=== PATIENT | female | born 1985 | race Caucasian/White ===

== ENCOUNTER 2023-06-24 12:37 | Emergency (ER) | payer OTHER, SELFPAY ==
[2023-06-24 12:46] VITALS: BP 102/66
[2023-06-24 13:18] LABS: % Basophils 0.6 % (0-2); % Immature Granulocytes 0.2 % (0-0.5); % Lymphocytes 22.2 % (20.5-51.1); Absolute Eosinophils 0.1 10^3/uL (0-0.7); Absolute Lymphocytes 1.1 10^3/uL (1.2-3.4); Absolute Monocytes 0.4 10^3/uL (0.1-0.6); Absolute Neutrophils 3.6 10^3/uL (1.4-6.5); Hemoglobin 14.8 g/dL (12.0-16.0); Mean Corp Hgb Conc. 34.4 g/dL (33.0-37.0); Mean Corpuscular Hgb 29.5 pg (27.0-31.0); Mean Corpuscular Volume 85.7 fL (81.0-99.0); Nucleated Red Blood Cells % 0 %; Red Blood Cell Count 5.02 10^6/uL (4.20-5.40); Red Cell Dist. Width 13.9 % (11.5-14.5); White Blood Cell Count 5.1 10^3/uL (4.8-10.8)
[2023-06-24 13:32] LABS: HCG, Serum Qualitative Screen Negative
[2023-06-24 13:35] LABS: ALT (SGPT) 20 U/L (0-35); AST (SGOT) 28 U/L (14-36); Albumin 4.5 g/dl (3.5-5.0); Alkaline Phosphatase 40 U/L (38-126); Blood Urea Nitrogen 13 mg/dl (7-17); Calcium 9.1 mg/dl (8.4-10.2); Carbon Dioxide 22 mmol/L (22-30); Chloride 108 mmol/L (98-107); Glucose 86 mg/dl (70-99); Potassium 4.2 mmol/L (3.5-5.1); Sodium 137 mmol/L (135-145); Total Bilirubin 0.6 mg/dl (0.2-1.3); Total Protein 7.2 g/dl (6.3-8.2); eGFR > 60.00
[2023-06-24 13:55] LABS: Mean Platelet Volume 13.5 fL (7.4-10.4); Platelet Count 97 10^3/uL (130-400)
--- NOTE | 2023-06-24 15:19 | ED.GENMED ---
History of Present Illness
<KELLEE Alvares - Last Filed: 06/24/23 17:13>
General
Chief Complaint: Headache
Source: patient
Exam Limitations: none
Time Seen by Provider: 06/24/23 15:19
Nursing documentation reviewed up to this point in time: agreed with
Travel History
Have you had any contact with someone who has COVID-19?: No
Do you have any symptoms of coronavirus? Fever > 100 degrees, chills, cough, shortness of breath, sore throat, loss of taste or smell, muscle aches, or headache?: No
History of Present Illness
History of Present Illness:
Patient is a 37-year-old female with history of multiple AVMs, with several embolizations complicated by a stroke during last embolization, craniotomy infected plate and skull(Staphylococcus). She is presently followed at [facility]. They see
neurosurgeon once a year for checkup. They have been weaning her off of Topirmate.
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 This morning she complained of a headache around 8:30 AM. She has had headaches in the past that usually resolve with ibuprofen. She was given ibuprofen at 10:30 AM and this did resolve however nurse
thought her scalp over her previous craniotomy site appears mildly swollen.
Patient is otherwise at baseline as per family. Normal gait normal behavior. Patient currently denies headaches. As documented again patient has had headaches this is not uncommon and they resolved with ibuprofen which is what occurred today.
Past History
<KELLEE Alvares - Last Filed: 06/24/23 17:13>
Past History
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
ED Past Surgical History: Other (avm repair, Lefft craniotomy)
Social History
Tobacco: Non-smoker
Alcohol: None
Drug: None
Personal: Single
Living: with family
Family History
Family History: Unable to obtain
Review of Systems
<KELLEE Alvares - Last Filed: 06/24/23 17:13>
Review of Systems
Allergies reviewed?: Yes
All Other Systems: ROS reviewed and negative except as documented in HPI and ROS
Constitutional: Reports no symptoms; Denies fever, fatigue or chills
Respiratory: Reports no symptoms
Cardiac: Reports no symptoms
ABD/GI: Denies nausea or vomiting
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
Skin: Reports no symptoms
Neurological: Reports other (no baseline mental status change. Patient had headache this morning which is since resolved)
Hematologic/Lymphatic: Reports no symptoms
Psychiatric: Reports no symptoms
Phy Exam
<KELLEE Alvares - Last Filed: 06/24/23 17:13>
General Physical Exam
General Presentation: no apparent distress
General age: appears stated age
General Skin: warm and dry
General Habitus: normal
General Mental: alert
General Hydration: appears well hydrated
ENT Exam
ENT Exam: EOMI
Eye Exam
Eye Exam: PERRL and EOMI
Eye Exam General: PERRL: bilateral and EOM intact: bilateral
Pupil Exam: Bilateral: round and reactive
Neurological Exam
Neurological Exam: alert and other (attempts to answer some questions )
Musculoskeletal Exam
Musculoskeletal Exam: other (Left scalp with obvious chronic deformity no evidence of swelling or erythema to previous surgical flap site)
Skin Exam
Skin Exam: normal color and warm/dry
Psychiatric Exam
Psychiatric Exam: normal mood/affect
Course
<KELLEE Alvares - Last Filed: 06/24/23 17:13>
Orders/Labs/Results
Orders:
Orders
06/24/23 12:56
Test Result ONCE
06/24/23 12:59
CT Head W/o Iv Contrast Urgent
Comment:
Reason For Exam: swelling
06/24/23 13:01
CBC/With Diff [Complete Blood Count/With Diff] Urgent
CMP [Comprehensive Metabolic Panel] Urgent
HCG, Serum Qualitative Screen Urgent
Abnormal Lab Results
06/24/23
13:01
Plt Count 97 L 10^3/uL
(130-400)
MPV 13.5 H fL
(7.4-10.4)
Absolute Lymphs (auto) 1.1 L 10^3/uL
(1.2-3.4)
Chloride 108 H mmol/L
(98-107)
06/24/23 13:01
06/24/23 13:01
Vital Signs
Initial and Last Documented VS:
Initial Vital Signs
Temp Pulse Resp BP Pulse Ox
98.3 F 80 16 102/66 97
06/24/23 12:46 06/24/23 12:46 06/24/23 12:46 06/24/23 12:46 06/24/23 12:46
Last Documented Vital Signs
Temp Pulse Resp BP Pulse Ox
98.3 F 78 16 107/79 98
06/24/23 12:46 06/24/23 16:49 06/24/23 16:49 06/24/23 16:49 06/24/23 16:49
Configuration Management Administrator consulted with Physician
Configuration Management Administrator consulted with physician?: Yes
Name of Physician Consulted: jolene
Massiellt;Coy Allen, DO - Last Filed: 06/24/23 16:31>
Orders/Labs/Results
Orders:
Orders
06/24/23 12:56
Test Result ONCE
06/24/23 12:59
CT Head W/o Iv Contrast Urgent
Comment:
Reason For Exam: swelling
06/24/23 13:01
CBC/With Diff [Complete Blood Count/With Diff] Urgent
CMP [Comprehensive Metabolic Panel] Urgent
HCG, Serum Qualitative Screen Urgent
Abnormal Lab Results
06/24/23
13:01
Plt Count 97 L 10^3/uL
(130-400)
MPV 13.5 H fL
(7.4-10.4)
Absolute Lymphs (auto) 1.1 L 10^3/uL
(1.2-3.4)
Chloride 108 H mmol/L
(98-107)
06/24/23 13:01
06/24/23 13:01
Vital Signs
Initial and Last Documented VS:
Initial Vital Signs
Temp Pulse Resp BP Pulse Ox
98.3 F 80 16 102/66 97
06/24/23 12:46 06/24/23 12:46 06/24/23 12:46 06/24/23 12:46 06/24/23 12:46
Last Documented Vital Signs
Temp Pulse Resp BP Pulse Ox
98.3 F 78 16 107/79 98
06/24/23 12:46 06/24/23 16:49 06/24/23 16:49 06/24/23 16:49 06/24/23 16:49
<KELLEE Alvares - Last Filed: 06/24/23 17:13>
MDM/Problems Addressed
Differential Diagnosis Includes:
Not limited to evaluation, scalp infection infection
MDM/Problems Addressed:
37-year-old female status post craniotomy for AVM repair with scalp infection brought by family for evaluation past family was concerned that patient's flap site was mildly swollen(surgical site from 2013 after staph infection) they report no
behavior change no fevers. Patient does get headaches she did have a headache this morning but that resolved with ibuprofen which is what typically occurs.
Patient is in no acute distress and looks well alert afebrile here with a normal white count. There is no obvious infection on exam. Evaluate ED attending who agrees with assessment and plan.
<KELLEE Alvares - Last Filed: 06/24/23 17:13>
*Radiology
Radiology exam reviewed: radiology read reviewed (Extensive encephalomalacia of the left cerebral hemisphere with extensive postsurgical and posttreatment changes stable including some minimal midline shift from left to right)
*Critical Care Note
Total Time (30-74mins, 75-104mins- exclusive of procedures): Not Applicable
ED Attending Note
<KELLEE Alvares - Last Filed: 06/24/23 17:13>
-
Portions of this chart may have been created with voice recognition software.� Occasional wrong word or��sound alike� substitutions may have occurred due to the inherent limitations of voice recognition software.
<Coy Allen DO - Last Filed: 06/24/23 16:31>
ED Attending Note
Patient seen and examined by attending physician: Yes
I performed the substantive portion of visit, reviewed & personally made and approve the management plan that is documented in note by myself or DASHAWN.: Yes
ED Attending Note:
I agree with Rossi's note.
Concern for swelling over site of craniectomy.
Afebrile
baseline neuro exam
I do not appreciate any area of concern for abnormal collection or infection.
CT unchanged.
Discharge Plan
Departure
Patient Disposition: Home (Routine Discharge)
Date of Disposition: 06/24/23
Time of Disposition: 16:29
Patient with high blood pressure during this ER visit?: No
Covid-19: Not Applicable
Discharge Problem:
Encounter for medical assessment, headache resolved
Prescriptions:
No Action
baclofen 10 MG tablet
1.5 tab PO TID
gabapentin 100 MG capsule
100 mg PO TID
topiramate 100 MG tablet
100 mg PO BID
silodosin 8 MG capsule
1 tab PO HS
multivitamin [Daily Vitamin] 1 EACH tablet
2 ea PO HS
Referrals:
Jose Reyna MD [Family Provider] -
Activity Restrictions/Additional Instructions:
Patient was seen here today for questionable swallowing to left scalp. There is no evidence of infection on exam. Patient does not have a fever here has a normal white count stable CAT scan of head.
Follow-up with specialist as previously scheduled and return if any worsening of symptoms.
Interventions
Interventions:
*Risk Screen - Suicide Last Done: 06/24/23 12:46
*General Assessment Last Done: 06/24/23 12:46
*Neglect/Abuse Screening Last Done: 06/24/23 12:46
ED- Fall Risk Assessment Last Done: 06/24/23 16:51
*ED COVID-19 Vaccine History Last Done: 06/24/23 15:43
*Nursing Disposition Last Done: 06/24/23 16:51
ED- Neurological Assessment Last Done: 06/24/23 16:49
Discharge Date and Time
Discharge Date/Time: 06/24/23 16:53
[2023-06-24 16:49] VITALS: BP 107/79
== END 2023-06-24 16:53 | disposition home or self-care (01) ==
LOC: EMR 12:37
PROVIDERS: Emergency Medicine; EMERGENCY PHYSICIAN Emergency Medicine; FAMILY PHYSICIAN Family Medicine
DX: R51.9 Headache, unspecified (principal); Z98.890 Other specified postprocedural states
CPT/HCPCS: 99284; 70450; 80053; 84703; 85025